=== PATIENT | female | born 1960 | race Caucasian/White ===

== ENCOUNTER → 2017-10-17 | Outpatient (CLI) | payer OTHER ==
[~2017-10-17] MED LIST: NOHOMEMEDICATIONS; PERCOCET 5-3251 EACH PO
== END ==
LOC: M.RAD 16:16
DX: M25.561 Pain in right knee (principal)

== ENCOUNTER → 2020-04-20 | Outpatient (CLI) | payer OTHER ==
[~2020-04-20] MED LIST changes: +MUCINEX600 MG PO; +ZYRTEC10 M5 PO
== END ==
LOC: M.ULTRA 10:08
PROVIDERS: ATTEND Internal Medicine
DX: M79.605 Pain in left leg (principal)

== ENCOUNTER → 2020-07-25 | Outpatient (CLI) | payer OTHER | LOC: M.RAD 15:58 | PROVIDERS: ATTEND Internal Medicine | DX: Z12.31 Encounter for screening mammogram for malignant neoplasm of breast (principal); N95.1 Menopausal and female climacteric states ==

== ENCOUNTER → 2020-08-31 | Outpatient (CLI) | payer OTHER | LOC: M.RAD 15:23 | PROVIDERS: ATTEND Internal Medicine Critical Care Medicine | DX: R05 Cough (principal); R06.02 Shortness of breath ==

== ENCOUNTER → 2020-09-29 | Outpatient (CLI) | payer OTHER ==
--- NOTE | 2020-10-06 11:31 | PF ---
[address] [address] PULMONARY FUNCTION REPORT Name: ELKE CHOWDARY Isabelle Room: [facility]#: [id number] Admission: 09/29/20 Attend Phys: Dale Cruz MD Discharge: Date of : 58 Report #: [id number] THIS REPORT FOR: cc: Geovani Jaramillo MD, Meng MD Pervez,Dale FUENTES ~ DOC #: [id number] Dale Cruz MD DATE OF VISIT: 09/29/2020 PULMONARY FUNCTION TEST SPIROMETRY: The FEV1/FVC ratio is normal at 80% with FVC normal at 105% and FEV1 normal at 109%. [id number] is also normal at 112%. After the administration of a bronchodilator, there is no significant change in any of these values. The patient's post-bronchodilator FEV1 of 3.34 L. LUNG VOLUMES: Total lung capacity is normal at 99% with a residual volume mildly decreased to 74%. DIFFUSION CAPACITY: The DLCO adjusted for hemoglobin is normal at 100%. IMPRESSION: 1. Spirometry is normal. 2. The lung volumes are essentially normal with the exception that the residual volume is mildly decreased to 74%. This is likely a normal variant; however, mild restriction can also lead to this picture. 3. The DLCO as adjusted for hemoglobin is normal at 100%. MD PIETRO Ledesma/DON <ELECTRONICALLY SIGNED> By: Dale Cruz MD 10/06/20 [id number] Cruz MD /nt
== END ==
LOC: M.PUL 08:51
PROVIDERS: ATTEND Internal Medicine Critical Care Medicine
DX: R05 Cough (principal); R06.02 Shortness of breath; Z88.8 Allergy status to other drugs, medicaments and biological substances

== ENCOUNTER → 2020-10-27 | Outpatient (CLI) | payer OTHER ==
--- NOTE | 2020-11-15 08:35 | SLEEP ---
[place] [address] SLEEP STUDY REPORT Name: RIYAAlexELKE Isabelle Room: [facility]#: [id number] Admission: 10/27/20 Attend Phys: Dale Cruz MD Discharge: Date of : 58 Report #: [id number] THIS REPORT FOR: cc: Geovani Jaramillo MD, Meng MD Pervez, Adeel MD ~ DOC #: [id number] Dale Cruz MD DATE OF STUDY: 10/28/2020 SLEEP STUDY INDICATION FOR SLEEP STUDY: Previous history of obstructive sleep apnea. The patient discontinued use of CPAP on her own many years ago. Does have excessive daytime sleepiness. INTERPRETATION: Total duration of the study is 454 minutes. During this time duration, we recorded multiple sleep related respiratory events. These included 258 obstructive apneas in addition to 12 central apneas and 9 mixed apneas in addition to 65 hypopneas. Overall apnea-hypopnea index is moderately elevated to 45.4. Body position data indicates the patient was lying on the right side throughout the sleep study. There is severe nocturnal hypoxemia recorded. Her O2 saturation was noted to drop down to 64% and the patient spent 88 minutes below an O2 saturation of 88%, out of which 26 minutes were spent with an O2 saturation less than 80% with heart rate 80. The patient has severe obstructive sleep apnea with an apnea-hypopnea index of 45.4. The patient is noted to be on the right side throughout the sleep study. There is severe nocturnal hypoxemia. Overall, the patient spent 88 minutes below an O2 saturations of 88%, out of which 26 minutes were spent with an O2 saturation of less than 80% the lowest recorded O2 saturation was 64%. RECOMMENDATIONS: 1. Considering severe nocturnal hypoxemia as described above, I recommend that we proceed with an in-lab sleep study for positive airway pressure titration rather than use of a CPAP auto titrated device. 2. Recommend weight loss. 3. Recommend avoiding driving and other activities requiring vigilance if drowsy. His entire sleep study was reviewed by board certified sleep physician. MD PIETRO eLdesma/VICENTE/[place] [address] SLEEP STUDY REPORT Name: ELKE CHOWDARY Room: [facility]#: [id number] Admission: 10/27/20 Attend Phys: Dale Cruz MD Discharge: Date of : 58 Report #: [id number] <ELECTRONICALLY SIGNED> By: Dale Cruz MD 11/15/20 [id number] Cruz MD /nt
== END ==
LOC: M.PUL 08:46
PROVIDERS: ATTEND Internal Medicine Critical Care Medicine
DX: G47.33 Obstructive sleep apnea (adult) (pediatric) (principal); G47.10 Hypersomnia, unspecified

== ENCOUNTER → 2020-12-16 | Outpatient (CLI) | payer OTHER | LOC: M.SLEEPLAB 19:53 | PROVIDERS: ATTEND Internal Medicine Critical Care Medicine | DX: G47.33 Obstructive sleep apnea (adult) (pediatric) (principal); G47.34 Idiopathic sleep related nonobstructive alveolar hypoventilation ==

== ENCOUNTER → 2021-03-24 | Outpatient (CLI) | payer OTHER | LOC: M.CT 12:50 | PROVIDERS: ATTEND Internal Medicine Critical Care Medicine | DX: R91.8 Other nonspecific abnormal finding of lung field (principal); N20.0 Calculus of kidney; Z90.49 Acquired absence of other specified parts of digestive tract ==